=== PATIENT | male | born 1985 | race Caucasian/White ===

== ENCOUNTER 2021-06-12 03:19 | Emergency (ER) | payer SELFPAY ==
[~2021-06-12] VITALS: Ht 170.2 cm; Wt 74.8 kg
[2021-06-12 03:19] VITALS: BP 106/61
--- NOTE | 2021-06-12 03:20 | NUR ---
36 YO/M BIBA S/P BEING FOUND SITTING OUTSIDE A MALL W ALOC. PATIENT PRESENTS AOX2 (NAME AND PLACE), GCS 14 (CONFUSED), PERRL, S1S2 PRESENT, RADIAL PULSES +2 BILATERAL, CAP REFIL <3SEC, LUNG SOUNDS CLEAR THROUGHOUT, BREATHING EVEN AND UNLABORED. PATIENT DENIES INJURIES OR PAIN. PATIENT SITTING IN BED LOCKED IN LOWEST POSITION, X2 SIDERAILS UP FOR PATIENT SAFETY. NAD NOTED, WILL CONTINUE TO MONITOR. PMH:DENIES NKA
--- NOTE | 2021-06-12 03:28 | NUR ---
Blood samples drawn, walked to lab and handed to quality assurance/r&d lab technician.
--- NOTE | 2021-06-12 03:35 | NUR ---
Patient taken to CT via gurney.
[2021-06-12 03:48] LABS: HEMOGLOBIN 10.3 g/dL (12.0-18.0); MEAN CORPUSCULAR HGB CONC 32 g/dL (33-37); PLATELET COUNT (AUTO) 161 K/uL (140-450); RED BLOOD CELL COUNT(AUTO) 3.89 MIL/uL (4.20-6.10)
[2021-06-12 03:55] LABS: HEMATOCRIT 32.1 % (36-52); MEAN CORPUSCULAR HEMOGLOBIN 27 pg (27-31); MEAN CORPUSCULAR VOLUME 82.3 fL (80-94); RED CELL DISTRIBUTION WIDTH 23.7 % (11.6-13.7); WHITE BLOOD COUNT (AUTO) 4.1 K/uL (4.8-10.8)
--- NOTE | 2021-06-12 03:55 | NUR ---
PATIENT RETURNED FROM CT AND RE-CONNECTED TO MONITOR. PATIENT O2 SATURATION AT 85%, ERMD MADE AWARE. PLACED PATIENT IN 2L NASAL CANNULA, PATIENT SATURATION NOW AT 100%, ERMD MADE AWARE. VSS, NAD NOTED, WILL CONTINUE TO MONITOR.
[2021-06-12 04:08] LABS: ALBUMIN 3.1 g/dL (3.4-5.0); ANION GAP 11.5 (8-16); CARBON DIOXIDE 24.7 mmol/L (21-32); CREATININE 0.8 mg/dL (0.6-1.3); EOSINOPHILS % (MANUAL) 1 % (0-4); LYMPHOCYTES % (MANUAL) 52 % (20-46); MONOCYTES % (MANUAL) 6 % (5-12); POTASSIUM 3.2 mmol/L (3.5-5.1); TOTAL BILIRUBIN 0.2 mg/dL (0.0-1.0)
--- NOTE | 2021-06-12 04:10 | NUR ---
EKG PERFORMED AT BEDSIDE. EKG READS SINUS RHYTHM @ 62
--- NOTE | 2021-06-12 06:00 | NUR ---
PATIENT LAYING IN BED L LATERAL POSITION W EYES CLOSED, LOCKED IN LOWEST POSITION, X2 SIDERAILS UP FOR PATIENT SAFETY, HOB SLIGHTLY ELEVATED. BREATHING EVEN AND UNLABORED, ON 2L NS, VSS.
--- NOTE | 2021-06-12 07:20 | NUR ---
PT AMBULATED TO RESTROOM, STEADY GAIT
--- NOTE | 2021-06-12 07:27 | NUR ---
Pt report given to ELLIE CONTRERAS. Transfer of care at this time.
--- NOTE | 2021-06-12 07:27 | NUR ---
REPORT RECEIVED FROM TELMA ARGUETA FOR CONTINUITY OF CARE
[2021-06-12 07:54] VITALS: BP 95/56
--- NOTE | 2021-06-12 07:54 | NUR ---
Patient discharged with v/s stable. Written and verbal after care instructions given and explained. Patient verbalized understanding. Ambulatory with steady gait. All questions addressed prior to discharge. Advised to follow up with PMD.
== END 2021-06-12 07:54 | disposition home or self-care (01) ==
LOC: MED 03:19
DX: F10.129 Alcohol abuse with intoxication, unspecified (principal); R41.82 Altered mental status, unspecified; Y90.9 Presence of alcohol in blood, level not specified
CPT/HCPCS: 36415; 70450; 71045; 72125; 80053; 85025; 93005; 99285